=== PATIENT | female | born 1960 | race Caucasian/White ===

== ENCOUNTER 2022-09-23 03:58 | Inpatient (IN) | payer OTHER ==
[2022-09-23] MEDS ORDERED: LACTATED RINGERS SOLUTION 1000 ML INFUS.BAG IV ONE (04:40)
[2022-09-23 04:53] VITALS: BMI 33.8
[2022-09-23 05:11] LABS: EPI CELLS 4 /uL (0-25.1); HYALINE CASTS 0 /uL (0-3.1); PH,URINE 7.5 (5.0-8.0); URINE APPEARANCE CLEAR; URINE BACTERIA 208 /uL (0-1359); URINE BILIRUBIN NEGATIVE (NEGATIVE); URINE COLOR YELLOW; URINE GLUCOSE (UA) NEGATIVE (NEGATIVE); URINE KETONE NEGATIVE (NEGATIVE); URINE LEUK ESTERASE TRACE (NEGATIVE); URINE NITRITE NEGATIVE (NEGATIVE); URINE PROTEIN NEGATIVE (NEGATIVE); URINE RBC 7 /uL (0-23.9); URINE UROBILINOGEN 0.2 mg/dL (0.2-1.0); URINE WBC 7 /uL (0-25.8)
[2022-09-23 05:37] LABS: BASO % 0.8 % (0-2.0); EOS % 1.6 % (0-4.5); HEMATOCRIT 39.4 % (32.4-45.2); HEMOGLOBIN 13.2 GM/dL (10.7-15.3); LYMPH % 36.2 % (8-40); MCH 32.3 pg (25.7-33.7); MCHC 33.4 g/dl (32.0-36.0); MEAN CELL VOLUME 96.5 fl (80-96); MONO % 7.7 % (3.8-10.2); NEUT % 53.7 % (42.8-82.8); PLATELET COUNT 280 10^3/uL (134-434); RBC 4.08 M/mm3 (3.60-5.2); WHITE BLOOD COUNT 7.4 K/mm3 (4.0-10.0)
[2022-09-23 05:39] LABS: INR 0.95 (0.83-1.09); PROTHROMBIN TIME (PATIENT) 10.9 SEC (9.7-13.0)
[2022-09-23 05:42] LABS: ACTIVATED PTT 29.8 SECONDS (25.2-36.5)
[2022-09-23 05:43] LABS: ALBUMIN 3.3 g/dl (3.4-5.0); BLOOD UREA NITROGEN 12.2 mg/dL (7-18); MAGNESIUM 1.9 mg/dL (1.8-2.4)
[2022-09-23 05:47] LABS: TOT PROT 6.8 g/dl (6.4-8.2)
[2022-09-23 05:48] LABS: BILIRUBIN,TOTAL 0.3 mg/dL (0.2-1)
[2022-09-23] MEDS ORDERED: SODIUM CHLORIDE 1,000 ML IV SCH (12:30)
[2022-09-23] MEDS: NICOTINE 14 MG/24 HOURS TOPICAL PATCH TD SCH (15:00)
[2022-09-23] MEDS ORDERED: DIVALPROEX SODIUM 500 MG TABLET E.C. PO SCH (16:00)
[2022-09-23] MEDS ORDERED: clonazePAM 0.5 MG TABLET ONE (16:38)
[2022-09-23] MEDS: clonazePAM 0.5 MG TABLET PO SCH (16:45)
[2022-09-23] MEDS: DIVALPROEX 500 MG, DIVALPROEX 250 MG PO SCH (17:58)
[2022-09-23] MEDS ORDERED: MIRTAZAPINE 30 MG TABLET PO SCH (20:00)
[2022-09-23] MEDS ORDERED: OLANZapine 10 MG TABLET ONE (20:47)
[2022-09-23] MEDS ORDERED: ATORVASTATIN CA 40 MG TABLET (FP) ONE (20:47)
[2022-09-23] MEDS ORDERED: MIRTAZAPINE 15 MG TABLET (FP) ONE (20:47)
[2022-09-23] MEDS: traZODone HCL 50 MG TABLET (FP) PO SCH (21:18)
[2022-09-23] MEDS: ATORVASTATIN CA 40 MG TABLET (FP) PO SCH (21:18)
[2022-09-23] MEDS: OLANZapine 5 MG TABLET PO SCH (21:18)
[2022-09-24] MEDS: clonazePAM 0.5 MG TABLET PO SCH ×2 (06:38→16:30)
[2022-09-24] MEDS: DIVALPROEX 500 MG, DIVALPROEX 250 MG PO SCH ×2 (06:39→16:28)
[2022-09-24 08:18] LABS: BASO % 0.8 % (0-2.0); HEMATOCRIT 37.8 % (32.4-45.2); HEMOGLOBIN 12.8 GM/dL (10.7-15.3); LYMPH % 43.6 % (8-40); MCH 32.5 pg (25.7-33.7); MCHC 33.9 g/dl (32.0-36.0); MEAN CELL VOLUME 95.9 fl (80-96); MEAN PLT VOLUME 7.8 fl (7.5-11.1); MONO % 9.3 % (3.8-10.2); NEUT % 44.3 % (42.8-82.8); PLATELET COUNT 288 10^3/uL (134-434); RBC 3.94 M/mm3 (3.60-5.2); RDW 13.8 % (11.6-15.6)
[2022-09-24 08:43] LABS: BLOOD UREA NITROGEN 17.5 mg/dL (7-18); CALCIUM 8.9 mg/dL (8.5-10.1); MAGNESIUM 1.8 mg/dL (1.8-2.4)
[2022-09-24 08:46] LABS: CREATININE 1.1 mg/dL (0.55-1.3)
[2022-09-24 08:47] LABS: PHOSPHOROUS 3.6 mg/dL (2.5-4.9)
[2022-09-24 08:48] LABS: BILIRUBIN,TOTAL 0.2 mg/dL (0.2-1); TOT PROT 6.2 g/dl (6.4-8.2)
[2022-09-24] MEDS: ENOXAPARIN NA (PORCINE) 40 MG/0.4 ML DISP.SYRIN SQ SCH (10:09)
[2022-09-24] MEDS: NICOTINE 14 MG/24 HOURS TOPICAL PATCH TD SCH (10:09)
[2022-09-24] MEDS: ASPIRIN COATED 81 MG TABLET.EC PO SCH (10:09)
[2022-09-24] MEDS: traZODone HCL 50 MG TABLET (FP) PO SCH (22:00)
[2022-09-24] MEDS: ATORVASTATIN CA 40 MG TABLET (FP) PO SCH (22:02)
[2022-09-24] MEDS: OLANZapine 5 MG TABLET PO SCH (22:02)
[2022-09-24] MEDS: MIRTAZAPINE 30 MG, MIRTAZAPINE 15 MG PO SCH (22:02)
[2022-09-25] MEDS: DIVALPROEX 500 MG, DIVALPROEX 250 MG PO SCH ×2 (06:33→16:59)
[2022-09-25] MEDS: clonazePAM 0.5 MG TABLET PO SCH ×3 (06:33→17:00)
[2022-09-25] MEDS: ENOXAPARIN NA (PORCINE) 40 MG/0.4 ML DISP.SYRIN SQ SCH (09:30)
[2022-09-25] MEDS: NICOTINE 14 MG/24 HOURS TOPICAL PATCH TD SCH (09:30)
[2022-09-25] MEDS: ASPIRIN COATED 81 MG TABLET.EC PO SCH (09:30)
[2022-09-25] MEDS: OLANZapine 5 MG TABLET PO SCH (20:08)
[2022-09-25] MEDS: traZODone HCL 50 MG TABLET (FP) PO SCH (20:08)
[2022-09-25] MEDS: MIRTAZAPINE 30 MG, MIRTAZAPINE 15 MG PO SCH (20:11)
[2022-09-25] MEDS: ATORVASTATIN CA 40 MG TABLET (FP) PO SCH (21:04)
[2022-09-26 05:53] VITALS: RESP 18
[2022-09-26] MEDS: clonazePAM 0.5 MG TABLET PO SCH (06:24)
[2022-09-26] MEDS: DIVALPROEX 500 MG, DIVALPROEX 250 MG PO SCH (06:24)
[2022-09-26] MEDS: ASPIRIN COATED 81 MG TABLET.EC PO SCH (09:03)
[2022-09-26] MEDS: ENOXAPARIN NA (PORCINE) 40 MG/0.4 ML DISP.SYRIN SQ SCH (09:03)
[2022-09-26] MEDS: NICOTINE 14 MG/24 HOURS TOPICAL PATCH TD SCH (09:03)
[2022-09-26 10:27] VITALS: BP 117/70; PULSE 85; TEMP 97.7
== END 2022-09-26 14:00 | DRG 204 ==
LOC: JER 03:58 → JERBED 06:07 → J4W 21:51 → OBSVTOIN 09-26 10:15
PROVIDERS: ADMIT Internal Medicine; ATTEND Internal Medicine
DX: R55 Syncope and collapse (principal); E78.5 Hyperlipidemia, unspecified; F10.10 Alcohol abuse, uncomplicated; G40.909 Epilepsy, unspecified, not intractable, without status epilepticus; F43.10 Post-traumatic stress disorder, unspecified; F31.9 Bipolar disorder, unspecified; R27.8 Other lack of coordination; R82.71 Bacteriuria; W18.30XA Fall on same level, unspecified, initial encounter; Y92.098 Other place in other non-institutional residence as the place of occurrence of the external cause
CPT/HCPCS: 0241U-QW; 36415; 70450-TC; 71045-TC-FY; 72125-TC; 80053; 81003; 82136; 82607; 82962; 83036; 83735; 83918; 84100; 84443; 84484; 85025; 85610; 85730; 86850; 86900; 86901; 87086; 93005; 93010; 93306-TC; 94010; 99285-25; G0378

== ENCOUNTER 2023-07-16 09:44 | Inpatient (IN) | payer OTHER ==
[2023-07-16 10:08] VITALS: BMI 34.7
[2023-07-16] MEDS ORDERED: REMDESIVIR 200 MG in SODIUM CHLORIDE 250 ML IVPB ONE ×3 (10:59→16:39)
[2023-07-16 11:09] LABS: BASO % 1.1 % (0-2.0); EOS % 0.3 % (0-4.5); HEMATOCRIT 42.5 % (32.4-45.2); HEMOGLOBIN 13.8 GM/dL (10.7-15.3); LYMPH % 23.4 % (8-40); MCH 31.3 pg (25.7-33.7); MCHC 32.4 g/dl (32.0-36.0); MEAN CELL VOLUME 96.6 fl (80-96); MEAN PLT VOLUME 8.2 fl (7.5-11.1); MONO % 11.9 % (3.8-10.2); NEUT % 63.3 % (42.8-82.8); PLATELET COUNT 255 10^3/uL (134-434); RDW 14.2 % (11.6-15.6); WHITE BLOOD COUNT 8.2 K/mm3 (4.0-10.0)
[2023-07-16 11:28] LABS: POTASSIUM 4.7 mmol/L (3.5-5.1)
[2023-07-16 11:30] LABS: CALCIUM 9.5 mg/dL (8.5-10.1)
[2023-07-16 11:31] LABS: ALBUMIN 3.1 g/dl (3.4-5.0); BLOOD UREA NITROGEN 15.6 mg/dL (7-18)
[2023-07-16 11:34] LABS: CREATININE 1.1 mg/dL (0.55-1.3)
[2023-07-16 11:35] LABS: BILIRUBIN,TOTAL 0.3 mg/dL (0.2-1); TOT PROT 6.9 g/dl (6.4-8.2)
[2023-07-16] MEDS ORDERED: SODIUM CHLORIDE 0.9% 500 ML INFUS.BAG IV ONE (11:51)
[2023-07-16] MEDS ORDERED: ATORVASTATIN CA 40 MG TABLET (FP) ONE (19:34)
[2023-07-16] MEDS ORDERED: MIRTAZAPINE 15 MG TABLET (FP) ONE (19:34)
[2023-07-16] MEDS ORDERED: traZODone HCL 50 MG TABLET (FP) ONE (19:34)
[2023-07-16] MEDS: OLANZapine 5 MG TABLET PO SCH (19:55)
[2023-07-16] MEDS: MIRTAZAPINE 15 MG TABLET (FP) PO SCH (19:55)
[2023-07-16] MEDS: traZODone HCL 50 MG TABLET (FP) PO SCH (19:55)
[2023-07-16] MEDS: ATORVASTATIN CA 40 MG TABLET (FP) PO SCH (21:05)
[2023-07-17 00:52] LABS: EPI CELLS 9 /uL (0-25.1); HYALINE CASTS 0 /uL (0-3.1); URINE APPEARANCE CLEAR; URINE BACTERIA 108 /uL (0-1359); URINE BILIRUBIN NEGATIVE (NEGATIVE); URINE COLOR YELLOW; URINE GLUCOSE (UA) NEGATIVE (NEGATIVE); URINE KETONE NEGATIVE (NEGATIVE); URINE LEUK ESTERASE 1+ (NEGATIVE); URINE NITRITE NEGATIVE (NEGATIVE); URINE PROTEIN NEGATIVE (NEGATIVE); URINE RBC 12 /uL (0-23.9); URINE UROBILINOGEN 0.2 mg/dL (0.2-1.0); URINE WBC 21 /uL (0-25.8)
[2023-07-17] MEDS ORDERED: clonazePAM 0.5 MG TABLET ONE ×2 (06:05→16:16)
[2023-07-17] MEDS ORDERED: DIVALPROEX NA *ER* EXTEND REL 250 MG TABLET.SA ONE (06:06)
[2023-07-17] MEDS: DIVALPROEX SODIUM 250 MG TABLET E.C. PO SCH ×2 (06:16→16:32)
[2023-07-17] MEDS: clonazePAM 0.5 MG TABLET PO SCH ×2 (06:16→16:33)
[2023-07-17 08:49] LABS: POTASSIUM 4.1 mmol/L (3.5-5.1)
[2023-07-17 08:59] LABS: ALBUMIN 2.8 g/dl (3.4-5.0); BLOOD UREA NITROGEN 14.8 mg/dL (7-18); CALCIUM 8.8 mg/dL (8.5-10.1)
[2023-07-17 09:04] LABS: BILIRUBIN,TOTAL 0.4 mg/dL (0.2-1); TOT PROT 6.2 g/dl (6.4-8.2)
[2023-07-17] MEDS: REMDESIVIR 100 MG in SODIUM CHLORIDE 250 ML IVPB SCH (11:00)
[2023-07-17] MEDS: ASPIRIN COATED 81 MG TABLET.EC PO SCH (11:00)
[2023-07-17] MEDS: ENOXAPARIN NA (PORCINE) 40 MG/0.4 ML DISP.SYRIN SQ SCH (11:47)
[2023-07-17 20:59] LABS: BASO % 0.7 % (0-2.0); EOS % 2.3 % (0-4.5); HEMATOCRIT 42.5 % (32.4-45.2); HEMOGLOBIN 14.1 GM/dL (10.7-15.3); LYMPH % 49.8 % (8-40); MCH 31.7 pg (25.7-33.7); MCHC 33.2 g/dl (32.0-36.0); MEAN CELL VOLUME 95.6 fl (80-96); MEAN PLT VOLUME 8.2 fl (7.5-11.1); MONO % 10.7 % (3.8-10.2); NEUT % 36.5 % (42.8-82.8); PLATELET COUNT 220 10^3/uL (134-434); RBC 4.44 M/mm3 (3.60-5.2); RDW 14.4 % (11.6-15.6); WHITE BLOOD COUNT 6.8 K/mm3 (4.0-10.0)
[2023-07-17] MEDS: MIRTAZAPINE 15 MG TABLET (FP) PO SCH (21:19)
[2023-07-17] MEDS: traZODone HCL 50 MG TABLET (FP) PO SCH (21:20)
[2023-07-17] MEDS: ATORVASTATIN CA 40 MG TABLET (FP) PO SCH (21:20)
[2023-07-17] MEDS: OLANZapine 5 MG TABLET PO SCH (21:20)
[2023-07-18 02:51] VITALS: RESP 18
[2023-07-18] MEDS: clonazePAM 0.5 MG TABLET PO SCH ×2 (06:16→16:32)
[2023-07-18] MEDS: DIVALPROEX SODIUM 250 MG TABLET E.C. PO SCH ×2 (06:16→16:31)
[2023-07-18 09:23] LABS: POTASSIUM 4.2 mmol/L (3.5-5.1)
[2023-07-18 09:25] LABS: BLOOD UREA NITROGEN 15.8 mg/dL (7-18); CALCIUM 8.9 mg/dL (8.5-10.1)
[2023-07-18 09:29] LABS: CREATININE 0.9 mg/dL (0.55-1.3)
[2023-07-18 09:30] LABS: BILIRUBIN,TOTAL 0.3 mg/dL (0.2-1); TOT PROT 6.7 g/dl (6.4-8.2)
[2023-07-18] MEDS: ENOXAPARIN NA (PORCINE) 40 MG/0.4 ML DISP.SYRIN SQ SCH (10:52)
[2023-07-18] MEDS: REMDESIVIR 100 MG in SODIUM CHLORIDE 250 ML IVPB SCH (10:52)
[2023-07-18] MEDS: ASPIRIN COATED 81 MG TABLET.EC PO SCH (10:52)
[2023-07-18 16:45] LABS: BASO % 0.6 % (0-2.0); EOS % 2.6 % (0-4.5); HEMOGLOBIN 13.8 GM/dL (10.7-15.3); MCH 31.4 pg (25.7-33.7); MEAN CELL VOLUME 95.4 fl (80-96); MEAN PLT VOLUME 8.5 fl (7.5-11.1); MONO % 8.8 % (3.8-10.2); PLATELET COUNT 228 10^3/uL (134-434); RDW 14.5 % (11.6-15.6); WHITE BLOOD COUNT 7.1 K/mm3 (4.0-10.0)
[2023-07-18] MEDS: traZODone HCL 50 MG TABLET (FP) PO SCH (20:52)
[2023-07-18] MEDS: OLANZapine 5 MG TABLET PO SCH (20:52)
[2023-07-18] MEDS: MIRTAZAPINE 15 MG TABLET (FP) PO SCH (20:53)
[2023-07-19] MEDS: DIVALPROEX SODIUM 250 MG TABLET E.C. PO SCH ×2 (06:03→16:48)
[2023-07-19] MEDS: clonazePAM 0.5 MG TABLET PO SCH ×2 (06:04→16:48)
[2023-07-19] MEDS: ASPIRIN COATED 81 MG TABLET.EC PO SCH (09:19)
[2023-07-19] MEDS: ENOXAPARIN NA (PORCINE) 40 MG/0.4 ML DISP.SYRIN SQ SCH (09:20)
[2023-07-19 10:28] LABS: BASO % 0.7 % (0-2.0); EOS % 2.9 % (0-4.5); HEMATOCRIT 40.2 % (32.4-45.2); HEMOGLOBIN 13.8 GM/dL (10.7-15.3); MCH 32.2 pg (25.7-33.7); MCHC 34.2 g/dl (32.0-36.0); MEAN CELL VOLUME 94.1 fl (80-96); MEAN PLT VOLUME 8.4 fl (7.5-11.1); NEUT % 43.4 % (42.8-82.8); PLATELET COUNT 221 10^3/uL (134-434); RBC 4.28 M/mm3 (3.60-5.2); RDW 14.2 % (11.6-15.6); WHITE BLOOD COUNT 6.7 K/mm3 (4.0-10.0)
[2023-07-19 10:47] LABS: POTASSIUM 3.8 mmol/L (3.5-5.1)
[2023-07-19 11:10] VITALS: BP 127/64; PULSE 78; TEMP 98.1
[2023-07-19 11:45] LABS: CALCIUM 8.4 mg/dL (8.5-10.1)
[2023-07-19 11:46] LABS: ALBUMIN 2.7 g/dl (3.4-5.0); BILIRUBIN,TOTAL 0.9 mg/dL (0.2-1)
[2023-07-19 11:49] LABS: CREATININE 0.9 mg/dL (0.55-1.3)
[2023-07-19 11:52] LABS: TOT PROT 6.1 g/dl (6.4-8.2)
[2023-07-19 11:55] LABS: ALBUMIN 2.7 g/dl (3.4-5.0)
[2023-07-19 11:57] LABS: BILIRUBIN,DIRECT 0.1 mg/dL (0.0-0.2)
[2023-07-19 12:00] LABS: BILIRUBIN,TOTAL 0.3 mg/dL (0.2-1); TOT PROT 6.1 g/dl (6.4-8.2)
[2023-07-19 16:20] LABS: BASO % 0.9 % (0-2.0); EOS % 2.1 % (0-4.5); HEMATOCRIT 41.6 % (32.4-45.2); LYMPH % 47.7 % (8-40); MCH 31.8 pg (25.7-33.7); MCHC 33.7 g/dl (32.0-36.0); MEAN CELL VOLUME 94.3 fl (80-96); MONO % 7.2 % (3.8-10.2); NEUT % 42.1 % (42.8-82.8); PLATELET COUNT 241 10^3/uL (134-434); RBC 4.42 M/mm3 (3.60-5.2); WHITE BLOOD COUNT 8.1 K/mm3 (4.0-10.0)
[2023-07-20] MEDS ORDERED: REMDESIVIR 100 MG in SODIUM CHLORIDE 270 ML IVPB ONE (10:00)
== END 2023-07-19 17:30 | DRG 137 ==
LOC: JER 09:44 → JERBED 11:01 → OBSVTOIN 16:16 → J6S 07-17 20:11
PROVIDERS: ADMIT Student in an Organized Health Care Education/Training Program; ATTEND Internal Medicine
DX: U07.1 COVID-19 (principal); R53.1 Weakness; R29.6 Repeated falls; F43.10 Post-traumatic stress disorder, unspecified; E78.5 Hyperlipidemia, unspecified; F31.9 Bipolar disorder, unspecified; E66.9 Obesity, unspecified; Z68.32 Body mass index [BMI] 32.0-32.9, adult; M54.50 Low back pain, unspecified; F17.210 Nicotine dependence, cigarettes, uncomplicated; F41.8 Other specified anxiety disorders; R74.01 Elevation of levels of liver transaminase levels; W18.30XA Fall on same level, unspecified, initial encounter; Y93.9 Activity, unspecified; Y92.009 Unspecified place in unspecified non-institutional (private) residence as the place of occurrence of the external cause; Y99.9 Unspecified external cause status
CPT/HCPCS: 0241U-QW; 36415; 70450-TC; 71045-TC-FY; 72125-TC; 72170-TC-FY; 80053; 80076; 81003; 82550; 82553; 83735; 84484; 85025; 86140; 87086; 93005; 93010; 97116-GP; 97161-GP; 99285-25; G0378; J0248

== ENCOUNTER 2023-07-19 20:13 | Observation (INO) | payer OTHER ==
[2023-07-19] MEDS ORDERED: ACETAMINOPHEN 325 MG TABLET (FP) PO ONE (20:51)
[2023-07-19] MEDS ORDERED: ACETAMINOPHEN 325 MG TABLET (FP) ONE (21:02)
[2023-07-19 23:47] LABS: BASO % 0.7 % (0-2.0); EOS % 1.7 % (0-4.5); HEMATOCRIT 40.6 % (32.4-45.2); HEMOGLOBIN 13.8 GM/dL (10.7-15.3); MCH 31.9 pg (25.7-33.7); MEAN CELL VOLUME 93.9 fl (80-96); MEAN PLT VOLUME 7.8 fl (7.5-11.1); MONO % 7.6 % (3.8-10.2); PLATELET COUNT 228 10^3/uL (134-434); RBC 4.32 M/mm3 (3.60-5.2); RDW 13.9 % (11.6-15.6); WHITE BLOOD COUNT 9.5 K/mm3 (4.0-10.0)
[2023-07-19 23:58] LABS: INR 1.14 (0.83-1.09); PROTHROMBIN TIME (PATIENT) 13.2 SEC (9.7-13.0)
[2023-07-20 00:01] LABS: ACTIVATED PTT 33.6 SECONDS (25.2-36.5)
[2023-07-20 00:25] LABS: CHLORIDE 106 mmol/L (98-107); POTASSIUM 4.1 mmol/L (3.5-5.1); SODIUM 140 mmol/L (136-145)
[2023-07-20 00:26] LABS: CALCIUM 8.3 mg/dL (8.5-10.1)
[2023-07-20 00:27] LABS: ALBUMIN 2.9 g/dl (3.4-5.0); ANION GAP 6 mmol/L (4-13); CO2 28 mmol/L (21-32); GLUCOSE,RANDOM 103 mg/dL (74-106); MAGNESIUM 1.8 mg/dL (1.8-2.4)
[2023-07-20 00:30] LABS: CREATININE 0.9 mg/dL (0.55-1.3); SGOT/AST 70 U/L (15-37); SGPT/ALT 77 U/L (13-61)
[2023-07-20 00:32] LABS: BILIRUBIN,TOTAL 0.3 mg/dL (0.2-1); TOT PROT 6.4 g/dl (6.4-8.2)
[2023-07-20 00:33] LABS: ALK PHOS 142 U/L (45-117)
[2023-07-20] MEDS ORDERED: DIVALPROEX SODIUM 500 MG TABLET E.C. PO SCH ×2 (07:00→10:00)
[2023-07-20] MEDS ORDERED: PATIENT'S OWN MEDICATION (NON-FORMULARY) (Clonazepam [Clonazepam] 1 MG Tablet) PO SCH (07:00)
[2023-07-20 08:16] LABS: BASO % 0.6 % (0-2.0); HEMATOCRIT 41.9 % (32.4-45.2); HEMOGLOBIN 13.7 GM/dL (10.7-15.3); LYMPH % 46.7 % (8-40); MCH 31.6 pg (25.7-33.7); MCHC 32.7 g/dl (32.0-36.0); MEAN CELL VOLUME 96.4 fl (80-96); MEAN PLT VOLUME 8.5 fl (7.5-11.1); MONO % 8.5 % (3.8-10.2); NEUT % 42.2 % (42.8-82.8); PLATELET COUNT 235 10^3/uL (134-434); RBC 4.35 M/mm3 (3.60-5.2); RDW 13.8 % (11.6-15.6)
[2023-07-20 08:20] LABS: POTASSIUM 4.1 mmol/L (3.5-5.1)
[2023-07-20 08:24] LABS: ALBUMIN 2.8 g/dl (3.4-5.0); CALCIUM 8.2 mg/dL (8.5-10.1)
[2023-07-20 08:25] LABS: BLOOD UREA NITROGEN 15.4 mg/dL (7-18)
[2023-07-20 08:27] LABS: CREATININE 0.9 mg/dL (0.55-1.3); PHOSPHOROUS 3.4 mg/dL (2.5-4.9)
[2023-07-20 08:29] LABS: BILIRUBIN,TOTAL 0.4 mg/dL (0.2-1); TOT PROT 6.5 g/dl (6.4-8.2)
[2023-07-20 08:32] LABS: CHOLESTEROL 124 mg/dL (50-200)
[2023-07-20 08:33] LABS: LDL CHOLESTEROL (ONLY SJRH) 61 mg/dL (5-100)
[2023-07-20 08:35] LABS: HDL CHOLESTEROL 36 mg/dL (40-60)
[2023-07-20] MEDS: DIVALPROEX SODIUM 250 MG TABLET E.C. PO SCH ×3 (08:43→22:41)
[2023-07-20] MEDS: ASPIRIN COATED 81 MG TABLET.EC PO SCH ×2 (08:43→09:09)
[2023-07-20] MEDS ORDERED: DIVALPROEX NA *ER* EXTEND REL 250 MG TABLET.SA ONE (08:43)
[2023-07-20] MEDS: ENOXAPARIN NA (PORCINE) 40 MG/0.4 ML DISP.SYRIN SQ SCH ×2 (08:43→09:09)
[2023-07-20] MEDS: NICOTINE 14 MG/24 HOURS TOPICAL PATCH TD SCH ×2 (08:44→09:09)
[2023-07-20 12:49] LABS: URINE APPEARANCE Clear; URINE BILIRUBIN Negative (NEGATIVE); URINE COLOR Yellow; URINE GLUCOSE (UA) Negative (NEGATIVE); URINE KETONE Negative (NEGATIVE); URINE LEUK ESTERASE 1+ (NEGATIVE); URINE NITRITE Negative (NEGATIVE); URINE PROTEIN Negative (NEGATIVE)
[2023-07-20 13:13] LABS: METHADONE, UR NEGATIVE (NEGATIVE); OPIATES, URI NEGATIVE (NEGATIVE); PHENCYCLIDINE,URINE NEGATIVE (NEGATIVE); URINE AMPHETAMINES NEGATIVE (NEGATIVE); URINE BENZODIAZEPINES NEGATIVE (NEGATIVE)
[2023-07-20 13:14] LABS: URINE BARBITURATES NEGATIVE (NEGATIVE)
[2023-07-20 13:20] LABS: COCAINE, UR NEGATIVE (NEGATIVE)
[2023-07-20 13:53] LABS: EPI CELLS 24 /uL (0-25.1); HYALINE CASTS 0 /uL (0-3.1); URINE BACTERIA 84 /uL (0-1359); URINE RBC 5 /uL (0-23.9); URINE WBC 10 /uL (0-25.8)
[2023-07-20] MEDS ORDERED: traZODone HCL 150 MG TABLET PO SCH (20:00)
[2023-07-20] MEDS ORDERED: OLANZapine 5 MG TABLET PO SCH (20:00)
[2023-07-20] MEDS ORDERED: MIRTAZAPINE 30 MG TABLET PO SCH (20:00)
[2023-07-20] MEDS ORDERED: DIVALPROEX SODIUM 250 MG TABLET E.C. ONE (22:36)
[2023-07-20] MEDS ORDERED: ATORVASTATIN CA 40 MG TABLET (FP) ONE (22:36)
[2023-07-20] MEDS: ATORVASTATIN CA 40 MG TABLET (FP) PO SCH (22:41)
[2023-07-20] MEDS ORDERED: MELATONIN 5 MG TABLETS PO PRN (23:49)
[2023-07-20] MEDS ORDERED: MELATONIN 5 MG TABLETS PO SCH (23:57)
[2023-07-21] MEDS ORDERED: traZODone HCL 50 MG TABLET (FP) PO ONE (00:16)
[2023-07-21] MEDS ORDERED: traZODone HCL 100 MG TABLET (FP) ONE (00:56)
[2023-07-21 02:42] VITALS: BMI 32.1
[2023-07-21] MEDS: ASPIRIN COATED 81 MG TABLET.EC PO SCH (10:05)
[2023-07-21] MEDS: NICOTINE 14 MG/24 HOURS TOPICAL PATCH TD SCH (10:05)
[2023-07-21] MEDS: ENOXAPARIN NA (PORCINE) 40 MG/0.4 ML DISP.SYRIN SQ SCH (10:05)
[2023-07-21] MEDS: DIVALPROEX SODIUM 250 MG TABLET E.C. PO SCH ×2 (10:05→22:11)
[2023-07-21] MEDS: CEPHALEXIN MONOHYDRATE 500 MG CAPSULE (UD) PO SCH ×3 (13:22→22:11)
[2023-07-21 22:00] VITALS: BP 137/71; PULSE 82; RESP 18; TEMP 97.9
[2023-07-21] MEDS ORDERED: MELATONIN 5 MG TABLETS PO SCH (22:00)
[2023-07-21] MEDS ORDERED: OLANZapine 5 MG TABLET PO SCH (22:00)
[2023-07-21] MEDS: ATORVASTATIN CA 40 MG TABLET (FP) PO SCH (22:10)
[2023-07-21] MEDS: traZODone HCL 50 MG TABLET (FP) PO SCH ×2 (22:11→22:16)
== END 2023-07-21 23:40 ==
LOC: JER 20:13 → JERBED 23:28 → J6S 07-21 01:29
PROVIDERS: ADMIT Internal Medicine; ATTEND Internal Medicine
PROC: 3E023GC Introduction of Other Therapeutic Substance into Muscle, Percutaneous Approach (ICD-10-PCS; principal; 2023-07-19)
DX: M54.50 Low back pain, unspecified (principal); R29.6 Repeated falls; G89.29 Other chronic pain; F31.9 Bipolar disorder, unspecified; E78.5 Hyperlipidemia, unspecified; R53.1 Weakness; W06.XXXA Fall from bed, initial encounter; Y93.84 Activity, sleeping; F25.9 Schizoaffective disorder, unspecified; R73.03 Prediabetes; Y92.092 Bedroom in other non-institutional residence as the place of occurrence of the external cause; R74.01 Elevation of levels of liver transaminase levels; F17.210 Nicotine dependence, cigarettes, uncomplicated; Z90.49 Acquired absence of other specified parts of digestive tract; F41.8 Other specified anxiety disorders; F43.10 Post-traumatic stress disorder, unspecified; F11.90 Opioid use, unspecified, uncomplicated; R56.9 Unspecified convulsions; Z86.16 Personal history of COVID-19
CPT/HCPCS: 0241U-QW; 36415; 70450-TC; 71046-TC-FY; 72125-TC; 72131-TC; 72192-TC; 76705-TC; 80053; 80061; 80164; 80307; 81003; 83735; 84100; 84484; 85025; 85610; 85730; 86704; 86706; 86708; 86803; 87086; 87186; 87340; 93005; 93010; 96372; 97116-GP; 97162-GP; 99285-25; G0378

== ENCOUNTER 2023-09-20 13:58 | Emergency (ER) | payer OTHER ==
[2023-09-20 14:43] VITALS: TEMP 98.6; BMI 34.7
[2023-09-20] MEDS ORDERED: NICOTINE 21 MG/24 HOURS TOPICAL PATCH ONE (21:14)
[2023-09-20] MEDS ORDERED: NICOTINE 21 MG/24 HOURS TOPICAL PATCH TD SCH (21:15)
[2023-09-20 21:28] LABS: BASO % 0.9 % (0-2.0); HEMATOCRIT 41.7 % (32.4-45.2); HEMOGLOBIN 13.9 GM/dL (10.7-15.3); LYMPH % 24.1 % (8-40); MCHC 33.3 g/dl (32.0-36.0); MEAN PLT VOLUME 7.9 fl (7.5-11.1); MONO % 9.3 % (3.8-10.2); NEUT % 64.7 % (42.8-82.8); PLATELET COUNT 258 10^3/uL (134-434); RBC 4.35 M/mm3 (3.60-5.2); RDW 15.4 % (11.6-15.6); WHITE BLOOD COUNT 7.5 K/mm3 (4.0-10.0)
[2023-09-20 21:35] LABS: INR 1.02 (0.83-1.09); PROTHROMBIN TIME (PATIENT) 11.8 SEC (9.7-13.0)
[2023-09-20 21:38] LABS: ACTIVATED PTT 28.6 SECONDS (25.2-36.5)
[2023-09-20 21:41] LABS: POTASSIUM 4.6 mmol/L (3.5-5.1)
[2023-09-20 21:43] LABS: ALBUMIN 3.2 g/dl (3.4-5.0); CALCIUM 9.3 mg/dL (8.5-10.1)
[2023-09-20 21:44] LABS: MAGNESIUM 1.8 mg/dL (1.8-2.4)
[2023-09-20 21:46] LABS: CREATININE 0.9 mg/dL (0.55-1.3)
[2023-09-20 21:47] LABS: BILIRUBIN,TOTAL 0.2 mg/dL (0.2-1)
[2023-09-21] MEDS ORDERED: ACETAMINOPHEN 1000 MG/100 ML BAG IVPB ONE (00:04)
[2023-09-21] MEDS ORDERED: ACETAMINOPHEN INJECTION 100 ML IVPB ONE (00:20)
[2023-09-21 01:59] VITALS: BP 146/70; PULSE 89; RESP 20
== END 2023-09-21 02:09 ==
LOC: JER 13:58
DX: Z04.3 Encounter for examination and observation following other accident (principal); W19.XXXA Unspecified fall, initial encounter
CPT/HCPCS: 0241U-QW; 36415; 70450-TC; 71045-TC-FY; 80053; 83735; 84484; 85025; 85610; 85730; 93005; 93010; 99285-25

== ENCOUNTER 2024-01-31 09:14 | Emergency (ER) | payer OTHER ==
[2024-01-31 09:40] VITALS: BMI 34.7
[2024-01-31] MEDS: SODIUM CHLORIDE 500 ML IV STA ×2 (10:35→12:00)
[2024-01-31 10:43] LABS: BASO % 0.4 % (0-2.0); EOS % 0.5 % (0-4.5); HEMATOCRIT 44.1 % (32.4-45.2); HEMOGLOBIN 14.7 GM/dL (10.7-15.3); LYMPH % 5.3 % (8-40); MCH 32.3 pg (25.7-33.7); MCHC 33.3 g/dl (32.0-36.0); MEAN CELL VOLUME 97.1 fl (80-96); MEAN PLT VOLUME 8.2 fl (7.5-11.1); MONO % 3.1 % (3.8-10.2); NEUT % 90.7 % (42.8-82.8); PLATELET COUNT 281 10^3/uL (134-434); RBC 4.54 M/mm3 (3.60-5.2); RDW 14.2 % (11.6-15.6)
[2024-01-31 11:06] LABS: POTASSIUM 5.8 mmol/L (3.5-5.1)
[2024-01-31 11:08] LABS: CALCIUM 9.4 mg/dL (8.5-10.1)
[2024-01-31 11:09] LABS: ALBUMIN 3.3 g/dl (3.4-5.0); BLOOD UREA NITROGEN 22.3 mg/dL (7-18); MAGNESIUM 1.7 mg/dL (1.8-2.4)
[2024-01-31 11:12] LABS: CREATININE 1.3 mg/dL (0.55-1.3)
[2024-01-31 11:13] LABS: TOT PROT 7.3 g/dl (6.4-8.2)
[2024-01-31 11:14] LABS: BILIRUBIN,TOTAL 0.4 mg/dL (0.2-1)
[2024-01-31] MEDS ORDERED: MAGNESIUM SULF 50% (8.12 MEQ/2 ML-1 GM VIAL) ONE (11:51)
[2024-01-31] MEDS: MAGNESIUM SULF 50% (8.12 MEQ/2 ML-1 GM VIAL) IVPB ONE (11:55)
[2024-01-31 17:04] VITALS: BP 132/76; PULSE 100; RESP 18; TEMP 98.4
== END 2024-01-31 19:12 | disposition home or self-care (01) ==
LOC: JER 09:14
PROC: 3E033GC Introduction of Other Therapeutic Substance into Peripheral Vein, Percutaneous Approach (ICD-10-PCS; principal; 2024-01-31)
PROC: 3E0337Z Introduction of Electrolytic and Water Balance Substance into Peripheral Vein, Percutaneous Approach (ICD-10-PCS; 2024-01-31)
PROC: 3E0337Z Introduction of Electrolytic and Water Balance Substance into Peripheral Vein, Percutaneous Approach (ICD-10-PCS; 2024-01-31)
DX: E83.42 Hypomagnesemia (principal); E86.0 Dehydration; R53.1 Weakness; R11.0 Nausea; R19.7 Diarrhea, unspecified; W06.XXXA Fall from bed, initial encounter
CPT/HCPCS: 36415; 80053; 80164; 82962; 83735; 85025; 93005; 93010; 99284-25

== ENCOUNTER 2024-01-31 20:15 | Observation (INO) | payer OTHER ==
[2024-01-31 21:04] VITALS: BMI 34.7
[2024-01-31 23:56] LABS: BASO % 0.8 % (0-2.0); EOS % 0.2 % (0-4.5); HEMATOCRIT 40.5 % (32.4-45.2); HEMOGLOBIN 13.8 GM/dL (10.7-15.3); LYMPH % 18.6 % (8-40); MCH 32.8 pg (25.7-33.7); MEAN CELL VOLUME 96.3 fl (80-96); MEAN PLT VOLUME 7.8 fl (7.5-11.1); MONO % 7.6 % (3.8-10.2); NEUT % 72.8 % (42.8-82.8); PLATELET COUNT 251 10^3/uL (134-434); RBC 4.21 M/mm3 (3.60-5.2); RDW 14.3 % (11.6-15.6); WHITE BLOOD COUNT 8.6 K/mm3 (4.0-10.0)
[2024-02-01 00:15] LABS: POTASSIUM 4.5 mmol/L (3.5-5.1)
[2024-02-01 00:16] LABS: CALCIUM 8.4 mg/dL (8.5-10.1)
[2024-02-01 00:17] LABS: ALBUMIN 3.1 g/dl (3.4-5.0); BLOOD UREA NITROGEN 18.3 mg/dL (7-18)
[2024-02-01 00:20] LABS: CREATININE 0.8 mg/dL (0.55-1.3)
[2024-02-01 00:22] LABS: BILIRUBIN,TOTAL 0.5 mg/dL (0.2-1); TOT PROT 6.5 g/dl (6.4-8.2)
[2024-02-01] MEDS ORDERED: clonazePAM 0.5 MG TABLET PO PRN (07:31)
[2024-02-01 08:58] LABS: BASO % 0.6 % (0-2.0); EOS % 0.3 % (0-4.5); HEMATOCRIT 39.8 % (32.4-45.2); HEMOGLOBIN 13.3 GM/dL (10.7-15.3); MCH 32.4 pg (25.7-33.7); MCHC 33.4 g/dl (32.0-36.0); MONO % 9.9 % (3.8-10.2); NEUT % 68.2 % (42.8-82.8); PLATELET COUNT 248 10^3/uL (134-434); RDW 14.4 % (11.6-15.6); WHITE BLOOD COUNT 8.1 K/mm3 (4.0-10.0)
[2024-02-01 09:19] LABS: POTASSIUM 4.1 mmol/L (3.5-5.1)
[2024-02-01 09:20] LABS: CALCIUM 8.2 mg/dL (8.5-10.1)
[2024-02-01 09:21] LABS: BLOOD UREA NITROGEN 17.2 mg/dL (7-18)
[2024-02-01 09:24] LABS: CREATININE 0.8 mg/dL (0.55-1.3)
[2024-02-01] MEDS: DIVALPROEX SODIUM 250 MG TABLET E.C. PO SCH ×2 (11:04→21:32)
[2024-02-01] MEDS: CHOLECALCIFEROL (VIT D3) 1,000 UNIT (25 MCG) TABLET PO SCH (11:04)
[2024-02-01] MEDS: ENOXAPARIN NA (PORCINE) 40 MG/0.4 ML DISP.SYRIN SQ SCH (11:04)
[2024-02-01] MEDS: ASPIRIN COATED 81 MG TABLET.EC PO SCH (11:04)
[2024-02-01] MEDS: MULTIVITAMINS (DAILY MVI) TABLET (FP) PO SCH (11:04)
[2024-02-01] MEDS: NICOTINE 14 MG/24 HOURS TOPICAL PATCH TD SCH (18:17)
[2024-02-01] MEDS: ACETAMINOPHEN 325 MG TABLET (FP) PO PRN (21:29)
[2024-02-01] MEDS: MELATONIN 5 MG TABLETS PO PRN (21:30)
[2024-02-01] MEDS: OLANZapine 5 MG TABLET PO SCH (21:30)
[2024-02-01] MEDS: traZODone HCL 50 MG TABLET (FP) PO SCH (21:31)
[2024-02-01] MEDS: ATORVASTATIN CA 40 MG TABLET (FP) PO SCH (21:32)
[2024-02-01] MEDS: MIRTAZAPINE 15 MG TABLET (FP) PO SCH (21:32)
[2024-02-02] MEDS ORDERED: DIVALPROEX SODIUM 500 MG TABLET E.C. PO SCH (07:00)
[2024-02-02] MEDS: DIVALPROEX SODIUM 250 MG TABLET E.C. PO SCH (09:34)
[2024-02-02] MEDS ORDERED: DIVALPROEX SODIUM 250 MG TABLET E.C. PO SCH (11:31)
[2024-02-02] MEDS ORDERED: LURASIDONE HCL 20 MG TABLET PO SCH (11:45)
[2024-02-02] MEDS: LURASIDONE HCL 40 MG, LURASIDONE HCL 20 MG PO SCH (12:24)
[2024-02-02] MEDS: DIVALPROEX 500 MG, DIVALPROEX 250 MG PO SCH (21:31)
[2024-02-02] MEDS: clonazePAM 0.5 MG TABLET PO SCH (21:32)
[2024-02-03] MEDS ORDERED: NICOTINE 14 MG/24 HOURS TOPICAL PATCH TD SCH (21:13)
[2024-02-04] MEDS: NICOTINE 21 MG/24 HOURS TOPICAL PATCH TD SCH (09:05)
[2024-02-06 14:21] VITALS: BP 124/77; PULSE 80; RESP 18; TEMP 98.2
== END 2024-02-06 17:19 ==
LOC: JER 20:15 → JERBED 21:43 → INTOOBSV 21:43 → J7W 02-01 02:43
PROVIDERS: ADMIT Internal Medicine; ATTEND Internal Medicine
PROC: 3E023GC Introduction of Other Therapeutic Substance into Muscle, Percutaneous Approach (ICD-10-PCS; principal; 2024-01-31)
DX: R29.6 Repeated falls (principal); W18.39XA Other fall on same level, initial encounter; Y93.89 Activity, other specified; Y92.89 Other specified places as the place of occurrence of the external cause; F43.10 Post-traumatic stress disorder, unspecified; F14.21 Cocaine dependence, in remission; F10.21 Alcohol dependence, in remission; F31.9 Bipolar disorder, unspecified; E11.9 Type 2 diabetes mellitus without complications; E78.5 Hyperlipidemia, unspecified; M54.9 Dorsalgia, unspecified; G89.29 Other chronic pain; Z72.0 Tobacco use; G47.00 Insomnia, unspecified
CPT/HCPCS: 36415; 72170-TC-FY; 80048; 80053; 82962; 85025; 87086; 87635; 96372; 97116-GP; 97162-GP; 99285-25; G0378

== ENCOUNTER 2024-03-21 14:40 | Inpatient (IN) | payer OTHER ==
[2024-03-21 16:44] LABS: BASO % 1.1 % (0-2.0); EOS % 1.5 % (0-4.5); HEMATOCRIT 44.2 % (32.4-45.2); HEMOGLOBIN 14.8 GM/dL (10.7-15.3); LYMPH % 33.4 % (8-40); MCH 31.7 pg (25.7-33.7); MCHC 33.4 g/dl (32.0-36.0); MEAN CELL VOLUME 94.6 fl (80-96); MONO % 9.7 % (3.8-10.2); NEUT % 54.3 % (42.8-82.8); PLATELET COUNT 293 10^3/uL (134-434); RBC 4.67 M/mm3 (3.60-5.2); RDW 14.1 % (11.6-15.6); WHITE BLOOD COUNT 12.3 K/mm3 (4.0-10.0)
[2024-03-21 17:13] LABS: POTASSIUM 4.5 mmol/L (3.5-5.1)
[2024-03-21 17:15] LABS: ALBUMIN 3.1 g/dl (3.4-5.0); BLOOD UREA NITROGEN 21.4 mg/dL (7-18); CALCIUM 9.6 mg/dL (8.5-10.1)
[2024-03-21 17:20] LABS: BILIRUBIN,TOTAL 0.4 mg/dL (0.2-1); TOT PROT 6.9 g/dl (6.4-8.2)
[2024-03-22] MEDS: SODIUM CHLORIDE 1,000 ML IV STA (06:05)
[2024-03-22 08:26] LABS: EPI CELLS >36 /uL (0-25.1); HYALINE CASTS 2 /uL (0-3.1); PH,URINE 6.5 (5.0-8.0); URINE APPEARANCE CLOUDY; URINE BACTERIA 4708 /uL (0-1359); URINE BILIRUBIN 1+ (NEGATIVE); URINE COLOR DK YELLOW; URINE GLUCOSE (UA) NEGATIVE (NEGATIVE); URINE KETONE 1+ (NEGATIVE); URINE LEUK ESTERASE 2+ (NEGATIVE); URINE NITRITE NEGATIVE (NEGATIVE); URINE PROTEIN 2+ (NEGATIVE); URINE WBC 770 /uL (0-25.8)
[2024-03-22 08:29] LABS: URINE RBC 435.8 /uL (0-23.9)
[2024-03-22] MEDS ORDERED: CEFTRIAXONE 1 GM/50 ML BAG ONE (08:44)
[2024-03-22] MEDS: CEFTRIAXONE 1,000 MG in DEXTROSE 5%-WATER - 50 ML IVPB ONE (08:57)
[2024-03-22] MEDS: INSULIN ASPART SLIDING SCALE (NOVOLOG) 1 VIAL SQ SCH (18:19)
[2024-03-22] MEDS: LACTATED RINGERS SOLUTION 1,000 ML/1,000 ML INFUS.BAG IV STA (18:30)
[2024-03-23] MEDS: DIVALPROEX SODIUM 250 MG TABLET E.C. PO ONE (01:09)
[2024-03-23] MEDS: DIVALPROEX SODIUM 500 MG TABLET E.C. PO SCH (06:13)
[2024-03-23 06:56] LABS: HEMATOCRIT 39.6 % (32.4-45.2); HEMOGLOBIN 13.4 GM/dL (10.7-15.3); MCH 32.1 pg (25.7-33.7); MCHC 33.8 g/dl (32.0-36.0); MEAN CELL VOLUME 95.2 fl (80-96); PLATELET COUNT 253 10^3/uL (134-434); RBC 4.16 M/mm3 (3.60-5.2); WHITE BLOOD COUNT 10.8 K/mm3 (4.0-10.0)
[2024-03-23 07:22] LABS: POTASSIUM 4.2 mmol/L (3.5-5.1)
[2024-03-23 07:24] LABS: ALBUMIN 2.7 g/dl (3.4-5.0); BLOOD UREA NITROGEN 15.6 mg/dL (7-18); CALCIUM 8.7 mg/dL (8.5-10.1)
[2024-03-23 07:29] LABS: BILIRUBIN,TOTAL 0.3 mg/dL (0.2-1); TOT PROT 6.1 g/dl (6.4-8.2)
[2024-03-23] MEDS: ASPIRIN COATED 81 MG TABLET.EC PO SCH (09:44)
[2024-03-23] MEDS: CEFTRIAXONE 1 GM in DEXTROSE 5%-WATER - 50 ML IVPB SCH (09:44)
[2024-03-23] MEDS: NICOTINE 7 MG/24 HOURS TOPICAL PATCH TD SCH (09:44)
[2024-03-23] MEDS: ENOXAPARIN NA (PORCINE) 40 MG/0.4 ML DISP.SYRIN SQ SCH (09:45)
[2024-03-23] MEDS: LURASIDONE HCL 20 MG TABLET PO SCH (10:52)
[2024-03-23] MEDS: ATORVASTATIN CA 40 MG TABLET (FP) PO SCH (21:47)
[2024-03-23] MEDS: MELATONIN 5 MG TABLETS PO PRN (22:05)
[2024-03-24] MEDS: NICOTINE 21 MG/24 HOURS TOPICAL PATCH TD SCH (09:19)
[2024-03-24 09:53] LABS: BASO % 0.9 % (0-2.0); EOS % 4.1 % (0-4.5); HEMATOCRIT 40.9 % (32.4-45.2); HEMOGLOBIN 13.9 GM/dL (10.7-15.3); LYMPH % 44.5 % (8-40); MCH 31.8 pg (25.7-33.7); MCHC 33.9 g/dl (32.0-36.0); MEAN CELL VOLUME 94.1 fl (80-96); MEAN PLT VOLUME 8.2 fl (7.5-11.1); MONO % 8.4 % (3.8-10.2); NEUT % 42.1 % (42.8-82.8); PLATELET COUNT 269 10^3/uL (134-434); RBC 4.35 M/mm3 (3.60-5.2); RDW 14.1 % (11.6-15.6); WHITE BLOOD COUNT 8.9 K/mm3 (4.0-10.0)
[2024-03-24 10:14] LABS: POTASSIUM 4.2 mmol/L (3.5-5.1)
[2024-03-24 10:20] LABS: ALBUMIN 2.7 g/dl (3.4-5.0); BLOOD UREA NITROGEN 12.4 mg/dL (7-18); CALCIUM 8.8 mg/dL (8.5-10.1)
[2024-03-24 10:21] LABS: CREATININE 0.9 mg/dL (0.55-1.3)
[2024-03-24 10:23] LABS: BILIRUBIN,TOTAL 0.6 mg/dL (0.2-1); TOT PROT 6.3 g/dl (6.4-8.2)
[2024-03-25 08:46] LABS: HEMATOCRIT 40.1 % (32.4-45.2); HEMOGLOBIN 13.7 GM/dL (10.7-15.3); MCH 32.4 pg (25.7-33.7); MEAN CELL VOLUME 95.2 fl (80-96); MEAN PLT VOLUME 8.1 fl (7.5-11.1); MONO % 9.9 % (3.8-10.2); NEUT % 42.1 % (42.8-82.8); PLATELET COUNT 284 10^3/uL (134-434); RBC 4.22 M/mm3 (3.60-5.2); RDW 14.1 % (11.6-15.6); WHITE BLOOD COUNT 10.2 K/mm3 (4.0-10.0)
[2024-03-25 08:58] LABS: POTASSIUM 4.2 mmol/L (3.5-5.1)
[2024-03-25 09:03] LABS: BLOOD UREA NITROGEN 14.9 mg/dL (7-18); CALCIUM 9.3 mg/dL (8.5-10.1)
[2024-03-25 09:09] LABS: BILIRUBIN,TOTAL 0.3 mg/dL (0.2-1); TOT PROT 6.4 g/dl (6.4-8.2)
[2024-03-25 15:57] VITALS: BMI 34.5
[2024-03-26 07:37] LABS: BASO % 0.8 % (0-2.0); EOS % 5.2 % (0-4.5); HEMOGLOBIN 13.8 GM/dL (10.7-15.3); LYMPH % 43.1 % (8-40); MCH 31.8 pg (25.7-33.7); MCHC 33.7 g/dl (32.0-36.0); MEAN CELL VOLUME 94.5 fl (80-96); MEAN PLT VOLUME 8.3 fl (7.5-11.1); MONO % 7.5 % (3.8-10.2); NEUT % 43.4 % (42.8-82.8); PLATELET COUNT 275 10^3/uL (134-434); RBC 4.34 M/mm3 (3.60-5.2); RDW 14.3 % (11.6-15.6); WHITE BLOOD COUNT 9.3 K/mm3 (4.0-10.0)
[2024-03-26 07:54] LABS: POTASSIUM 4.2 mmol/L (3.5-5.1)
[2024-03-26 07:58] LABS: ALBUMIN 2.8 g/dl (3.4-5.0); BLOOD UREA NITROGEN 13.7 mg/dL (7-18)
[2024-03-26 08:01] LABS: CREATININE 0.9 mg/dL (0.55-1.3)
[2024-03-26 08:03] LABS: BILIRUBIN,TOTAL 0.4 mg/dL (0.2-1); TOT PROT 6.4 g/dl (6.4-8.2)
[2024-03-27] MEDS ORDERED: PATIENT'S OWN MEDICATION (NON-FORMULARY) (Clonazepam [Clonazepam] 1 MG Tablet) PO PRN (08:09)
[2024-03-27] MEDS: clonazePAM 0.5 MG TABLET PO SCH (10:14)
[2024-03-29 08:54] VITALS: RESP 18
[2024-03-29 13:26] VITALS: BP 103/67; PULSE 69; TEMP 97.7
== END 2024-03-29 16:20 | DRG 463 ==
LOC: JER 14:40 → JERBED 03-22 08:36 → J7W 03-22 16:11
PROVIDERS: ADMIT Internal Medicine; ATTEND Nurse Practitioner Family
DX: N39.0 Urinary tract infection, site not specified (principal); E78.5 Hyperlipidemia, unspecified; F43.10 Post-traumatic stress disorder, unspecified; M54.50 Low back pain, unspecified; F17.210 Nicotine dependence, cigarettes, uncomplicated; F31.9 Bipolar disorder, unspecified; G40.909 Epilepsy, unspecified, not intractable, without status epilepticus; E11.9 Type 2 diabetes mellitus without complications; F41.9 Anxiety disorder, unspecified; B95.4 Other streptococcus as the cause of diseases classified elsewhere; B96.4 Proteus (mirabilis) (morganii) as the cause of diseases classified elsewhere; N39.41 Urge incontinence; N32.89 Other specified disorders of bladder; R26.2 Difficulty in walking, not elsewhere classified
CPT/HCPCS: 0241U-QW; 36415; 70450-TC; 71045-TC-FY; 74178-TC; 76775-TC; 76856-TC; 80053; 80164; 81003; 82607; 82746; 82962; 83036; 83735; 84439; 84443; 84484; 85025; 85027; 87081; 87086; 93005; 93010; 97116-GP; 97162-GP; 99285-25; Q9967